=== PATIENT | female | born 2005 | race Two or more races ===

== ENCOUNTER 2024-07-03 19:48 | Emergency (ER) | payer MEDICAID, SELFPAY ==
[2024-07-03 19:49] VITALS: BMI 29.2
[2024-07-03 20:05] VITALS: BP 111/78; PULSE 87; RESP 18; TEMP 36.8; O2SAT 98
--- NOTE | 2024-07-03 20:12 | EDRME_ITS ---
Rapid Medical Screening Exam [facility] Arrival date/time: 07/03/24 19:48 19F with no significant PMH presents to ED with 3 days of N/V, gen ab cramping, and some red/bloody diarrhea. Chief Complaint: Abdominal Pain Vital signs: Vital Signs Temperature 98.2 F 07/03/24 20:05 Pulse Rate 87 07/03/24 20:05 Respiratory Rate 18 07/03/24 20:05 Blood Pressure 111/78 07/03/24 20:05 Pulse Oximetry (%) 98 07/03/24 20:05 Oxygen Delivery Method Room Air 07/03/24 20:05
[2024-07-03 20:52] LABS: Basophils % (Auto) 0 % (0-2.5); Eosinophils # (Auto) 0.2 Thou/mm3 (0.0-0.5); Eosinophils % (Auto) 2 % (0-10); Hematocrit 37.6 % (36.0-46.0); Hemoglobin 13.1 g/dL (12.0-16.0); Immature Granulocytes % (Auto) 0 % (0-0); Immature Granulocytes Auto 0.02 Thou/mm3 (0.00-0.00); Lymphocytes # (Auto) 2.7 Thou/mm3 (1.0-4.8); Lymphocytes % (Auto) 24 % (10-50); Mean Corpuscular HGB Conc 34.8 g/dl (31.0-37.0); Mean Corpuscular Hemoglobin 26.9 pg (25.0-35.0); Mean Corpuscular Volume 77 fL (80-100); Monocytes # (Auto) 1.1 Thou/mm3 (0.0-0.8); Monocytes % (Auto) 9 % (0-12); Neutrophils # (Auto) 7.4 Thou/mm3 (1.8-7.7); Neutrophils % (Auto) 65 % (37-80); Nucleated Red Blood Cell % 0 /100 WBC (0); Platelet Count 387 Thou/mm3 (140-440); Red Blood Count 4.87 Miln/mm3 (4.00-5.20); White Blood Count 11.4 Thou/mm3 (4.5-11.0)
[2024-07-03 20:58] LABS: Alanine Aminotransferase 9 U/L (10-49); Albumin/Globulin Ratio 1.7 (1.2-2.2); Alkaline Phosphatase 92 U/L (46-116); Anion Gap 5 (7-16); Aspartate Amino Transferase 13 U/L (0-34); BUN/Creatinine Ratio 14 Ratio (12-20); Bilirubin,Total 0.5 mg/dL (0.3-1.2); Blood Urea Nitrogen 10 mg/dL (9-23); Calcium 10.2 mg/dL (8.3-10.6); Calcium (Corrected) 10.2 mg/dL (8.5-10.1); Carbon Dioxide 27.8 mMol/L (20.0-31.0); Chloride 103 mMol/L (98-107); Creatinine (Component) 0.7 mg/dL (0.6-1.3); Estimated Creatinine Clearance 128.8 mL/min (>60); Glucose 88 mg/dL (74-106); Lipase 35 U/L (12-53); Osmolality,Calculated 269 (275-295); Potassium 3.8 mMol/L (3.4-5.1); Sodium 136 mMol/L (136-145); eGFR > 60 See Note
[2024-07-03 22:59] LABS: Collection Type, Urine Clean Catch
[2024-07-03 23:05] LABS: HCG Qualitative,Urine Negative
[2024-07-03 23:07] LABS: Bilirubin,Urine Negative (Negative); Blood,Urine 3+ (Negative); Clarity,Urine Clear (Clear/Hazy); Color,Urine Colorless (Lt Yel-Yel); Glucose, Urine Negative (Negative); Ketones,Urine Negative (Negative); Leukocyte Esterase,Urine Positive (Negative); Nitrite,Urine Negative (Negative); Protein,Urine Negative (Neg - Trace); RBC,Urine 10 /hpf (0-3); Specific Gravity,Urine 1.006 (1.001-1.035); Squamous Epithelial Cell,Urine 9 /hpf (0-5); Urobilinogen,Urine Negative mg/dL (0.0-1.0); WBC,Urine 8 /hpf (0-5)
[2024-07-03 23:10] LABS: Amphetamine/Methamp Scrn,U Negative (Negative); Barbiturate Screen,Urine Negative (Negative); Benzodiazepines Screen,Urine Negative (Negative); Benzoylecgonine Screen, Ur Negative (Negative); Fentanyl Screen,Urine Negative (Negative); Opiate Screen,Urine Negative (Negative); THC Screen,Urine Negative (Negative)
--- NOTE | 2024-07-04 00:15 | PC.NURSE ---
PT TOLD TRIAGE NURSE SHE WILL BE LEAVING. SHE DID NOT WANT TO WAIT TO SIGN AMA FORM AND WAS SEEING WALKING OUT OF THE ER.
== END 2024-07-04 00:39 | disposition left against medical advice (07) ==
PROVIDERS: Physician Assistant; Emergency Provider Emergency Medicine; PCP Family Medicine
DX: R10.9 Unspecified abdominal pain (principal); R11.2 Nausea with vomiting, unspecified; R19.7 Diarrhea, unspecified; Z53.21 Procedure and treatment not carried out due to patient leaving prior to being seen by health care provider
CPT/HCPCS: 36415; 80053; 80307; 81001; 81025; 83690; 85025; 99281

== ENCOUNTER 2024-11-13 22:45 | Emergency (ER) | payer OTHER, MEDICAID, SELFPAY ==
[2024-11-13 22:46] VITALS: BMI 29.2
[2024-11-13 23:16] VITALS: BP 113/70; PULSE 86; RESP 20; TEMP 36.8; O2SAT 100
--- NOTE | 2024-11-13 23:22 | PD.EDRME ---
Rapid Medical Screening Exam [facility] Arrival date/time: 11/13/24 22:45 19F at approximately 7 weeks and with no significant PMH presents to ED with vaginal bleeding after sexual intercourse today. Chief Complaint: Vaginal Bleeding Vital signs: Vital Signs Temperature 98.2 F 11/13/24 23:16 Pulse Rate 86 11/13/24 23:16 Respiratory Rate 20 11/13/24 23:16 Blood Pressure 113/70 11/13/24 23:16 Pulse Oximetry (%) 100 11/13/24 23:16 Oxygen Delivery Method Room Air 11/13/24 23:16
[2024-11-13 23:37] LABS: Basophils # (Auto) 0.1 Thou/mm3 (0.0-0.2); Basophils % (Auto) 0 % (0-2.5); Eosinophils # (Auto) 0.3 Thou/mm3 (0.0-0.5); Eosinophils % (Auto) 2 % (0-10); Hematocrit 33.2 % (36.0-46.0); Hemoglobin 11.8 g/dL (12.0-16.0); Immature Granulocytes % (Auto) 0 % (0-0); Immature Granulocytes Auto 0.05 Thou/mm3 (0.00-0.00); Lymphocytes # (Auto) 3.2 Thou/mm3 (1.0-4.8); Lymphocytes % (Auto) 19 % (10-50); Mean Corpuscular HGB Conc 35.5 g/dl (31.0-37.0); Mean Corpuscular Volume 79 fL (80-100); Monocytes % (Auto) 6 % (0-12); Neutrophils # (Auto) 11.7 Thou/mm3 (1.8-7.7); Neutrophils % (Auto) 72 % (37-80); Nucleated Red Blood Cell % 0 /100 WBC (0); Platelet Count 311 Thou/mm3 (140-440); RDW Standard Deviation 41.9 fL (36.4-46.3); Red Blood Count 4.22 Miln/mm3 (4.00-5.20); White Blood Count 16.3 Thou/mm3 (4.5-11.0)
[2024-11-13 23:58] LABS: Collection Type, Urine Clean Catch
--- NOTE | 2024-11-14 | XR_ITS ---
Examination: OB Transvaginal ultrasound of the pelvis, complete Technique: Transvaginal sonographic images pelvis performed using guevara scale imaging Exam date and time: November 14, 2024 0006 hours Indication swelling vaginal bleeding beginning last night, early by history. FINDINGS: Uterus 7.9 cm, pole is 0.5 cm corresponding to 6 weeks 1 day gestational age Cardiac motion 127 bpm Right ovary 3.1 cm arterial flow Left ovary 2.4 cm arterial flow IMPRESSION: Viable intrauterine gestation 6 weeks 1 day No subchorionic hemorrhage
[2024-11-14 00:12] LABS: Alanine Aminotransferase 9 U/L (10-49); Albumin, Serum 4.1 gm/dL (3.5-5.0); Albumin/Globulin Ratio 1.6 (1.2-2.2); Alkaline Phosphatase 71 U/L (46-116); Anion Gap 6 (7-16); Aspartate Amino Transferase 13 U/L (0-34); BUN/Creatinine Ratio 17 Ratio (12-20); Bilirubin,Total 0.3 mg/dL (0.3-1.2); Blood Urea Nitrogen 10 mg/dL (9-23); Calcium 9.4 mg/dL (8.3-10.6); Calcium (Corrected) 9.4 mg/dL (8.5-10.1); Carbon Dioxide 25.6 mMol/L (20.0-31.0); Chloride 107 mMol/L (98-107); Creatinine (Component) 0.6 mg/dL (0.6-1.3); Estimated Creatinine Clearance 150.3 mL/min (>60); Globulin 2.6 gm/dL (2.3-3.5); Glucose 92 mg/dL (74-106); Osmolality,Calculated 276 (275-295); Potassium 3.4 mMol/L (3.4-5.1); Sodium 139 mMol/L (136-145); Total Protein 6.7 gm/dL (5.7-8.2); eGFR > 60 See Note
[2024-11-14 00:22] LABS: Bacteria,Urine Rare; Bilirubin,Urine Negative (Negative); Blood,Urine 3+ (Negative); Clarity,Urine Clear (Clear/Hazy); Color,Urine Lt-Yellow (Lt Yel-Yel); Glucose, Urine Negative (Negative); Ketones,Urine Negative (Negative); Leukocyte Esterase,Urine Negative (Negative); Nitrite,Urine Negative (Negative); Protein,Urine Negative (Neg - Trace); RBC,Urine 70 /hpf (0-3); Specific Gravity,Urine 1.028 (1.001-1.035); Squamous Epithelial Cell,Urine 1 /hpf (0-5); Urobilinogen,Urine Negative mg/dL (0.0-1.0); WBC,Urine 2 /hpf (0-5)
[2024-11-14 00:31] LABS: Beta HCG,Quantitative 23483 mIU/mL (<5.0)
--- NOTE | 2024-11-14 01:59 | PRELIM_ITS ---
Obstetric ultrasound (transabdominal and transvaginal) with Doppler and wave Doppler spectral analysis. November 14, 2024 0002 hours Clinical history: Bleeding after intercourse; 7 weeks Technique: Real-time ultrasound was performed using Duplex scanning including arterial inflow, venous outflow, color and spectral Doppler analysis of both ovaries. Comparison: None. Findings: There is an intrauterine gestation with a single live fetus of mean gestational age 6 weeks and 2 days (CRL= 0.5 cm). cardiac activity is present at heart rate of 127 beats per minute. The aortic sac is visualized. The uterus measures 7.9 x 4.8 x 5.5 cm. The right ovary measures 3.1 x 2.4 x 2.7 cm, follicles noted. The left ovary measures 2.2 x 1.0 x 2.4 cm, follicles noted. Normal blood flow in the bilateral ovaries with normal wave Doppler spectral analysis. There is no free fluid in the pelvis. Impression: Intrauterine gestation with a single live fetus of mean gestational age 6 weeks and 2 days. No evidence of ovarian torsion. Report Electronically Signed By: Nam Hernandes 11/14/2024 1:58:17 AM [EST]
[2024-11-14 03:37] VITALS: BP 129/83; PULSE 92; RESP 16; O2SAT 100
--- NOTE | 2024-11-14 03:41 | PD.EDVAGBL ---
ED OB Contraction Preg RMI/HPI General Chief complaint: Vaginal Bleeding Stated complaint: 7 WEEKS , VAGINAL BLEEDING Arrival date/time: 11/13/24 22:45 RME / HPI RME / HPI Narrative: 11/13/24 22:45 19F at approximately 7 weeks and with no significant PMH presents to ED with vaginal bleeding after sexual intercourse today. ' LMP 10/03/24. 19-year-old female G1 para 0 pending PROCTOLOGIST appointment on December presents to the emergency department with vaginal bleeding x 1 day. Presents with complaints of vaginal bleeding for 12 hours. Patient states that she had spotting after intercourse with her significant other today. Otherwise no abdominal cramping. No back pain. No burning when she urinates. No history of spontaneous or elective abortions or ectopics. The patient denies shortness of breath, chest pain, fever, chills, diarrhea, constipation, dysuria, back pain, or abdominal pain. No prior history of pelvic inflammatory disease, pelvic surgeries, use of fertility agents, and no current intrauterine device. 11/14/24 5:15 am [facility] - Idalia Matta Related Data Previous Rx's ?Medication ?Instructions ?Recorded amoxicillin 875 mg-potassium 1 tab PO Q12H #20 tabs 11/23/22 clavulanate 125 mg tablet ibuprofen 600 mg tablet 600 mg PO Q8H PRN fever or pain 11/23/22 #30 tabs ibuprofen 600 mg tablet 600 mg PO TID PRN pain #30 tabs 09/15/23 ibuprofen 800 mg tablet 800 mg PO TID PRN pain #30 tabs 12/14/23 Allergies Allergy/AdvReac Type Severity Reaction Status Date / Time No Known Allergies Allergy Verified 07/03/24 19:51 Review of Systems Review of Systems Systems Reviewed: All systems reviewed, normal except as documented Past Medical History Past Medical History CARDIAC: Negative Congestive Heart Failure RESPIRATORY: Negative Chronic Obstructive Pulmonary Disease (COPD) GENITOURINARY: Negative Renal Disease ENDOCRINE: Negative Diabetes Mellitus Type 1 or Diabetes Mellitus Type 2 Social History SMOKING STATUS: Never smoker ED Exam Narrative Physical exam: General: Non-toxic, well appearing, in no acute distress, and appears state age and well developed and well nourished. Vital signs: Normal. Head: Normocephalic and atraumatic. Eyes: Aproptotic, extraocular movements intact, and pupils equally round and reactive to light. Nose: Nares without evidence of rhinorrhea. Neck: Supple without menigismus without lympadenopathy. Heart: Regular rate and rhythm without murmur, gallops, or rubs. Lungs: Clear to auscultation without wheezing, rales, or rhonchi. Abdomen: Soft, nontender, no masses, and not distended. Skin: no rashes, ecchymosis, or lesions. 11/14/24 5:15 am Idalia Crystal Course Quality Measures none Orders Category Date Time Status US OB transvaginal Stat Exams 11/14/24 00:00 Taken ABO/RH Type Stat Lab 11/13/24 23:28 Completed Beta HCG,Quantitative Stat Lab 11/13/24 23:28 Completed CBC Stat Lab 11/13/24 23:28 Completed CMP [Comprehensive Metabolic Panel] Stat Lab 11/13/24 23:28 Completed UA [Urinalysis] Stat Lab 11/13/24 23:48 Completed Urine Culture Stat Lab 11/13/24 23:48 Received Reevaluation(s) Reevaluation #1: Patient in no acute distress. Repeat abdominal exam nontender nondistended. Vital Signs Vital signs: Vital Signs Temperature 98.2 F 11/13/24 23:16 Pulse Rate 86 11/13/24 23:16 Respiratory Rate 20 11/13/24 23:16 Blood Pressure 113/70 11/13/24 23:16 Pulse Oximetry (%) 100 11/13/24 23:16 Oxygen Delivery Method Room Air 11/13/24 23:16 Vaginal Bleeding MDM Narrative MDM Narrative: No evidence of significant hemorrhage, ectopic , or other life threatening pathology. Doubt heterotopic . Blood type Rh+. Viable intrauterine confirmed by transvaginal ultrasound performed by radiology. Plan to follow up in clinic within the week as scheduled with her first OB appointment in the next 1 week. Vital signs remained stable throughout the emergency department course. The patient was given strict return precautions and was comfortable with the plan. Patient data External records reviewed:: [facility] previous records Clinical information provided by:: patient Social determinants that could affect healthcare access:: none Patient has the following chronic illnesses:: None How is presenting disease/condition affected by chronic disease/condition?: exacerbated by Evaluation data The following diagnostics were reviewed and interpreted by me:: lab results and radiology exam(s) Lab and/or radiology exams considered but not ordered:: Obstetric ultrasound (transabdominal and transvaginal) with Doppler and wave Doppler spectral analysis. November 14, 2024 0002 hours Clinical history: Bleeding after intercourse; 7 weeks Technique: Real-time ultrasound was performed using Duplex scanning including arterial inflow, venous outflow, color and spectral Doppler analysis of both ovaries. Comparison: None. Findings: There is an intrauterine gestation with a single live fetus of mean gestational age 6 weeks and 2 days (CRL= 0.5 cm). cardiac activity is present at heart rate of 127 beats per minute. The aortic sac is visualized. The uterus measures 7.9 x 4.8 x 5.5 cm. The right ovary measures 3.1 x 2.4 x 2.7 cm, follicles noted. The left ovary measures 2.2 x 1.0 x 2.4 cm, follicles noted. Normal blood flow in the bilateral ovaries with normal wave Doppler spectral analysis. There is no free fluid in the pelvis. Impression: Intrauterine gestation with a single live fetus of mean gestational age 6 weeks and 2 days. No evidence of ovarian torsion. Report Electronically Signed By: Nam Hernandes 11/14/2024 1:58:17 AM [EST] Dictated By: Signed By: Interpretation Summary: Patient no evidence of ectopic . No UTI. hCG is noted. Medications / Prescriptions Medications or Prescriptions considered but not ordered:: none Medication administrations:: As above Consultations Consultation(s) initiated? (list below): No Consultation #1 (Physician, Specialty, Details): None Diagnosis Vaginal Bleeding Differential Diagnosis: missed , threatened , dysfunctional uterine bleeding, ectopic without intrauterine , vaginal bleeding and other Most likely diagnosis given after review of the tests above:: see clinical impression below Admission Indicated Admission indicated?: not indicated Explain why admission is indicated or not indicated:: Repeat abdominal exam nontender nondistended. Not actively bleeding per the patient Admission Request Was there a request for admission?: No Disposition Plan Disposition Plan: Discharge Discharge Attestation Discharge Attestation: The patient and all family members were given an opportunity to ask questions and understood the discharge instructions. Discharge instructions specifically effects, indications for sooner follow up or return to the emergency department, and the expected course of current diagnosis. Patient condition: Stable Discharge Plan Plan Patient Disposition: HOME (Self Care) Patient condition on transfer: Stable Prescriptions/Referrals Prescriptions/Med Rec: No Action amoxicillin-pot clavulanate 875-125 mg tablet 1 tab PO Q12H Qty: 20 0RF ibuprofen 600 mg tablet 600 mg PO Q8H PRN (Reason: fever or pain) Qty: 30 0RF ibuprofen 600 mg tablet 600 mg PO TID PRN (Reason: pain) Qty: 30 0RF ibuprofen 800 mg tablet 800 mg PO TID PRN (Reason: pain) Qty: 30 0RF Referrals: Kb Matta MD [Primary Care Provider] - In 1 week Problem List Clinical Impression: Vaginal bleeding, Intrauterine Patient/Caregiver Discharge Instructions Education Materials: ED Possible Miscarriage ... Additional Instructions: Today your ultrasound shows that you are at 6 weeks 2 days and the baby is doing fine. However if you should start bleeding again this could be an indication for miscarriage. Please avoid any intravaginal intercourse, baths, or tampons for the next 1 week. Please follow-up with your PROCTOLOGIST as scheduled for December 17. Return to the emergency department for any worsening symptoms, you have any cramping, increasing bleeding, or you have any other concerns. Print Language: [place] Citizen Stand Alone Forms: Arline Award Info., Patient Portal Info Letter
== END 2024-11-14 03:58 | disposition home or self-care (01) ==
PROVIDERS: Physician Assistant; Emergency Provider Emergency Medicine; PCP Family Medicine
DX: O20.9 Hemorrhage in early pregnancy, unspecified (principal); Z3A.01 Less than 8 weeks gestation of pregnancy
CPT/HCPCS: 36415; 76817; 80053; 81001; 84702; 85025; 86900; 86901; 87086; 99284

== ENCOUNTER 2025-05-07 12:37 | Observation (INO) | payer BC, MEDICAID, SELFPAY ==
[2025-05-07] VITALS (13 sets, daily range): BP systolic 96–99; BP diastolic 52–55; PULSE 85–105; RESP 16–100; TEMP 36.9; O2SAT 93–100; BMI 30.1
--- NOTE | 2025-05-07 13:03 | XR_ITS ---
Examination: Complete OB ultrasound greater than 14 weeks Date and time of exam: May 07, 2025 1310 hours INDICATIONS: Pelvic pain, pressure today Findings: Viable intrauterine single fetus with single amniotic sac presentation Vertex spine maternal right Cardiac motion 150 BPM Placenta right lateral grade 2 Umbilical cord insertion seen Amniotic fluid index 11.9 cm spine is visualized Ovaries obscured by bowel gas. Composite estimated gestational age based on BPD, head circumference, abdominal circumference, femur length is 32 weeks 0 days Estimated weight 1716 g. Survey of intracranial anatomy, spinal anatomy, abdominal anatomy, four-chamber heart performed with no abnormalities identified. Impression: Viable intrauterine gestation vertex presentation.
--- NOTE | 2025-05-07 13:03 | XR_ITS ---
Examination: OB Transvaginal ultrasound of the pelvis, Limited Technique: Transvaginal sonographic images pelvis performed using guevara scale imaging Exam date and time: May 07, 2025 1321 hours INDICATIONS: Onset of pelvic pain and pressure today, unknown cervical length. FINDINGS: Cervix 2.8 cm closed IMPRESSION: Cervix 2.8 cm closed.
[2025-05-07 13:19] LABS: Collection Type, Urine Clean Catch
[2025-05-07 13:58] LABS: Bacteria,Urine Rare; Bilirubin,Urine Negative (Negative); Blood,Urine Negative (Negative); Clarity,Urine Clear (Clear/Hazy); Color,Urine Lt-Yellow (Lt Yel-Yel); Glucose, Urine Negative (Negative); Ketones,Urine Negative (Negative); Leukocyte Esterase,Urine Positive (Negative); Nitrite,Urine Negative (Negative); PH,Urine 6.0 (5.0-7.0); Protein,Urine Negative (Neg - Trace); RBC,Urine 2 /hpf (0-3); Specific Gravity,Urine 1.005 (1.001-1.035); Squamous Epithelial Cell,Urine 2 /hpf (0-5); Urobilinogen,Urine Negative mg/dL (0.0-1.0); WBC,Urine 2 /hpf (0-5)
[2025-05-07 14:27] LABS: FFN Specimen Descripton Clr Colrless Aqueous; Fetal Fibronectin Positive (Negative)
[2025-05-07] MEDS: BETAMET ACET/BETAMET NA PH (Celestone) 6 MG/ML VIAL 12 MG IM (15:04)
[2025-05-07] MEDS: TERBUTALINE SULF INJ 1 MG/ML VIAL 0.25 MG SC (15:05)
[2025-05-07] MEDS: RINGERS LACTATED 1000 ML 1,000 ML 999 ML IV (15:24)
== END 2025-05-07 16:35 | disposition home or self-care (01) ==
PROVIDERS: Admitting Provider Specialist; Visit Provider Specialist
DX: O26.893 Other specified pregnancy related conditions, third trimester (principal); Z3A.30 30 weeks gestation of pregnancy; R10.2 Pelvic and perineal pain
CPT/HCPCS: 59025; 59899; 76805; 76817; 81001; 82731; 96372; J0702; J3105; J7120

== ENCOUNTER 2025-05-08 14:57 | Outpatient (CLI) | payer BC, MEDICAID, SELFPAY ==
[2025-05-08 15:06] VITALS: BP 107/66; PULSE 96
[2025-05-08 15:15] VITALS: BP 107/66; PULSE 96; RESP 18; RESP 99; TEMP 36.7; BMI 32.2
[2025-05-08] MEDS: BETAMET ACET/BETAMET NA PH (Celestone) 6 MG/ML VIAL 12 MG IM (15:40)
== END 2025-05-08 15:45 | disposition home or self-care (01) ==
LOC: S4S1 14:59 → S4SX 15:00
PROVIDERS: Referring Provider Surgery Surgical Oncology; Visit Provider Specialist
DX: Z34.03 Encounter for supervision of normal first pregnancy, third trimester (principal); Z36.9 Encounter for antenatal screening, unspecified; Z3A.31 31 weeks gestation of pregnancy
CPT/HCPCS: 59025; 96372; J0702

== ENCOUNTER 2025-05-12 14:15 | Observation (INO) | payer BC, MEDICAID, SELFPAY ==
[2025-05-12 14:15] VITALS: BP 101/56; PULSE 111; RESP 16; RESP 97; TEMP 36.8
[2025-05-12 14:26] VITALS: BMI 32.1
[2025-05-12 14:31] VITALS: BP 101/56; PULSE 111
[2025-05-12 15:30] VITALS: BP 104/60; PULSE 90
[2025-05-12 15:34] VITALS: PULSE 90
[2025-05-12] MEDS: TERBUTALINE SULF INJ 1 MG/ML VIAL 0.25 MG SC (15:34)
== END 2025-05-12 16:10 | disposition home or self-care (01) ==
PROVIDERS: Admitting Provider Specialist; Visit Provider Specialist
DX: O36.8190 Decreased fetal movements, unspecified trimester, not applicable or unspecified (principal); Z3A.00 Weeks of gestation of pregnancy not specified
CPT/HCPCS: 59899; J3105

== ENCOUNTER 2025-06-03 08:48 | Observation (INO) | payer BC, MEDICAID, SELFPAY ==
[2025-06-03] VITALS (18 sets, daily range): BP systolic 104; BP diastolic 63; PULSE 71–124; RESP 18–99; TEMP 36.8; O2SAT 91–100; BMI 32.7
[2025-06-03] MEDS: TERBUTALINE SULF INJ 1 MG/ML VIAL 0.25 MG SC ×2 (09:24→09:54)
== END 2025-06-03 10:27 | disposition home or self-care (01) ==
PROVIDERS: Admitting Provider Specialist; Visit Provider Specialist
DX: O36.8130 Decreased fetal movements, third trimester, not applicable or unspecified (principal); O26.893 Other specified pregnancy related conditions, third trimester; M54.9 Dorsalgia, unspecified; Z3A.34 34 weeks gestation of pregnancy
CPT/HCPCS: 59025; 59899; J3105

== ENCOUNTER 2025-06-29 13:10 | Inpatient (IN) | payer BC, MEDICAID, SELFPAY ==
[2025-06-29] VITALS (12 sets, daily range): BP systolic 112–123; BP diastolic 71–78; PULSE 70–103; RESP 18–98; TEMP 36.5–36.7; O2SAT 95–99; BMI 33.1
--- NOTE | 2025-06-29 15:28 | ESHP_ITS ---
RE: SUKUMAR JOY : 2005 DATE OF ADMISSION: 06/29/2025 HISTORY OF PRESENT ILLNESS: This is a 20 year old 1 para 0 with due date of 07/10 with intrauterine at 38 weeks and 3 days who presents to labor and delivery complaining of contractions. Intitially she was fingertip then after walking for 1 hour she progressed to 3 cm per RN exam and is being admitted for early labor. No leaking or bleeding. Normal movement. See PNV Record for PMHx. PE: 120/82 HR 83 RR 18 T 98.4 HEENT : oropharynx and sclera clear Lungs : CTA B/L Heart:? RRR Abdomen: Gravid term size consistent with 7.5 lbs. ?? Pelvic: see RN notes Ext:? Nontender Skin: No gross rashes or lesions Neuro: No focal deficit Psych: Alert and oriented IUP 38w3d by best dates. Labor Anticipate Informed consent obtained. Aware of the risk complications, alternatives and benefits of OVD and C/S Delivery and agrees with these modes of deliver if indicated. DT: 15:17:31 TT: 15:27:00 Ref: [id number] - TID: [id number] [facility]
--- NOTE | 2025-06-29 16:14 | PD.LDPN ---
Documentation for date of: 06/29/25 OB Labor Progress Note Pain Control Comments: None Pelvic Exam Dilation (cm): 3 Effacement (%): 60 station: -3 Amniotic membrane status: Intact Comments: Per RN exam Contractions Monitor mode: External Contraction frequency: 5-10 Contraction intensity: Mild Status status: Category l Assessment and Plan Comments: Anticipate History of Present Illness HPI Labor pains
[2025-06-29 18:02] LABS: Basophils # (Auto) 0.0 Thou/mm3 (0.0-0.2); Basophils % (Auto) 0 % (0-2.5); Eosinophils # (Auto) 0.1 Thou/mm3 (0.0-0.5); Eosinophils % (Auto) 1 % (0-10); Hematocrit 31.9 % (36.0-46.0); Hemoglobin 11.3 g/dL (12.0-16.0); Immature Granulocytes Auto 0.08 Thou/mm3 (0.00-0.00); Lymphocytes # (Auto) 2.1 Thou/mm3 (1.0-4.8); Lymphocytes % (Auto) 15 % (10-50); Mean Corpuscular HGB Conc 35.4 g/dl (31.0-37.0); Mean Corpuscular Hemoglobin 26.3 pg (25.0-35.0); Mean Corpuscular Volume 74 fL (80-100); Monocytes # (Auto) 1.3 Thou/mm3 (0.0-0.8); Monocytes % (Auto) 9 % (0-12); Neutrophils # (Auto) 10.7 Thou/mm3 (1.8-7.7); Neutrophils % (Auto) 75 % (37-80); Nucleated Red Blood Cell # 0.00 Thou/mm3 (0.00-0.00); Nucleated Red Blood Cell % 0 /100 WBC (0); Platelet Count 261 Thou/mm3 (140-440); RDW Standard Deviation 44.7 fL (36.4-46.3); Red Blood Count 4.29 Miln/mm3 (4.00-5.20); White Blood Count 14.2 Thou/mm3 (3.6-11.0)
[2025-06-29 18:47] LABS: Syphilis Nonreactive (Nonreactive)
[2025-06-30] VITALS (97 sets, daily range): BP systolic 91–123; BP diastolic 53–72; PULSE 64–113; RESP 15–20; TEMP 36.4–36.9; O2SAT 92–100
--- NOTE | 2025-06-30 07:01 | PD.LDPN ---
Documentation for date of: 06/30/25 OB Labor Progress Note Pain Control Comments: Epidural Pelvic Exam Dilation (cm): 6 Effacement (%): 90 station: -2 Amniotic membrane status: Intact Contractions Monitor mode: External Contraction frequency: 2-5 Contraction pattern: Tetanic Contraction intensity: Moderate Status status: Category l Assessment and Plan Comments: Anticipate . History of Present Illness HPI Labor pains
[2025-06-30] MEDS: fentaNYL CIT INJ 50 mCg/ML AMP 2ML 100 MCG IVP ×2 (09:37→11:14)
[2025-06-30] MEDS: MINERAL OIL 30 ML UDC TOP (12:05)
[2025-06-30] MEDS: OXYTOCIN in NS 20 units 20 UNIT/1,000 ML BAG 125 UNIT IV (12:07)
[2025-06-30] MEDS: LIDOCAINE HCL 1% 20 ML VIAL INFL (12:09)
[2025-06-30] MEDS: BENZO/LANO/ALOE (Dermoplast) 60 GM CAN 1 SPRAY TOP (12:09)
--- NOTE | 2025-06-30 12:34 | ESDS_ITS ---
DS: Providers Provider Date of admission: 06/29/25 15:58 Primary care physician: Physician No Primary/Family Admitting Provider: Channing Gray MD Attending Provider on Admission: Channing Gray MD Attending Provider on DC: Channing Gray MD Discharging Provider: Channing Gray MD DS: Diagnosis Discharge Diagnosis (1) (normal spontaneous vaginal delivery): Status: Acute Problem List Completed Was Problem List Reviewed/Reconciled?: Yes Summary/Hosp Course Brief History: Labor pains Peripartum Data Delivery Method: Normal Vaginal Delivery Laceration Description: see Delivery Summary Procedures: Repair 2nd degree perineal and bilateral labial lacerations EBL 200 Nuchal cord. Time Spent with Patient Time attestation: Total time spent providing and/or coordinating discharge services: Exam Vital Signs Temp Pulse Resp BP Pulse Ox O2 Del Method 98.1 F 81 20 112/60 100 Room Air 06/30/25 10:00 06/30/25 12:29 06/30/25 10:00 06/30/25 12:29 06/30/25 12:32 06/30/25 10:00 Discharge Plan Plan Patient Disposition: HOME (Self Care) Patient condition on transfer: Stable Prescriptions/Referrals Prescriptions/Med Rec: New ibuprofen 600 mg tablet 600 mg PO Q6H PRN (Reason: pain) Qty: 30 0RF Continued PNV no.95-ferrous fumarate-FA [] 28 mg iron- 800 mcg tablet 1 tab PO DAILY Patient Comments: Take 1 tablet by mouth once a day ferrous sulfate 325 mg (65 mg iron) tablet 325 mg PO QDAY Patient Comments: TAKE 1 TABLET BY MOUTH EVERY DAY Referrals: No Primary/Family,Physician [Primary Care Provider] Patient/Caregiver Discharge Instructions Discharge Activity: activity as tolerated Other Discharge Activity Instructions:: Follow up office 6 weeks. Print Language: [place] Stand Alone Forms: Arline Award Info., Patient Portal Info Letter Planned Discharge Date 06/30/25
[2025-06-30] MEDS: IBUPROFEN TAB 400 MG TABLET 800 MG PO (14:12)
[2025-06-30 17:52] LABS: Basophils # (Auto) 0.0 Thou/mm3 (0.0-0.2); Basophils % (Auto) 0 % (0-2.5); Eosinophils # (Auto) 0.0 Thou/mm3 (0.0-0.5); Eosinophils % (Auto) 0 % (0-10); Hematocrit 28.8 % (36.0-46.0); Hemoglobin 10.1 g/dL (12.0-16.0); Immature Granulocytes Auto 0.13 Thou/mm3 (0.00-0.00); Lymphocytes # (Auto) 1.7 Thou/mm3 (1.0-4.8); Lymphocytes % (Auto) 7 % (10-50); Mean Corpuscular HGB Conc 35.1 g/dl (31.0-37.0); Mean Corpuscular Hemoglobin 25.9 pg (25.0-35.0); Mean Corpuscular Volume 74 fL (80-100); Monocytes # (Auto) 1.6 Thou/mm3 (0.0-0.8); Monocytes % (Auto) 7 % (0-12); Neutrophils # (Auto) 19.5 Thou/mm3 (1.8-7.7); Neutrophils % (Auto) 85 % (37-80); Nucleated Red Blood Cell # 0.00 Thou/mm3 (0.00-0.00); Nucleated Red Blood Cell % 0 /100 WBC (0); Platelet Count 247 Thou/mm3 (140-440); RDW Standard Deviation 44.9 fL (36.4-46.3); Red Blood Count 3.90 Miln/mm3 (4.00-5.20); White Blood Count 22.9 Thou/mm3 (3.6-11.0)
--- NOTE | 2025-06-30 19:06 | PD.LDDELS ---
Data (Ennis) Data Hx Section: No : 1 Term: 0 : 0 Livin Abortions: Spontaneous & Theraputic: 0 Delivery Data (Ennis) Labor Data Initiation of labor: Spontaneous Induction/Augmentation Agent: Artificial ROM ROM date: 06/30/25 ROM time: 08:50 Amniotic membrane rupture type: Artificial Amniotic fluid description: Light Meconium Delivery Data EDC: 07/10/25 EDC calculated by:: LMP/early US confirmation Onset of labor date: 06/30/25 Onset of labor time: 07:00 Complete dilation date: 06/30/25 Complete dilation time: 11:50 Raymond delivery date: 06/30/25 delivery time: 12:06 Gestational age (weeks): 38 Gestational age (days): 4 Placenta delivery date: 06/30/25 Placenta delivery time: 12:16 Stage 1 total time: Labor - Stage 1 Duration 4 hours and 50 minutes Delivered by: Channing Gray Delivery nurse: REGGIE Yi nurse: REGGIE Otoole & REGGIE Valdes Insurance Specialist at delivery: No Support person(s) at delivery: FOB & Mother Other staff at delivery: Jason Olmstead mergers and acquisitions attorney Method Delivery method: Normal Vaginal Delivery Presentation: Vertex position: OA Anesthesia Type Anesthesia Type: Local Placenta Placenta delivery description: Spontaneous Cord blood sent to lab: Yes cord blood collection: Cord Blood Type Episiotomy Episiotomy description: None Lacerations #1: Perineal: 2nd degree Labial: Bilateral 2nd degree Perineal repair Sutures used for repair: 3.0 Chromic EBL Estimated blood loss (ml): 200 Umbilical Cord cord description: Nuchal Cord Complications Complications: None Raymond Data ([place]nis) Raymond Data order: 1 's gender: Male Identification band number: [id number] weight (gms): 6 lb 9.822 oz Weight (pounds): 6 lbs and 9.8 ozs length: 21 in 1 minute: 8 5 minutes: 9
[2025-07-01 00:07] VITALS: BP 102/67; PULSE 80; RESP 16; TEMP 36.8; O2SAT 98
[2025-07-01 04:18] VITALS: BP 114/71; PULSE 84; RESP 16; TEMP 36.7; O2SAT 98
[2025-07-01 08:00] VITALS: BP 110/63; PULSE 83; RESP 16; TEMP 36.7; O2SAT 98
--- NOTE | 2025-07-01 08:12 | ESPR_ITS ---
RE: SUKUMAR JOY : 2005 DATE OF SERVICE: 07/01/2025 SUBJECTIVE: day #1. Patient denies any problem or complaints. She is voiding and ambulating and tolerating her diet. She is passing flatus. OBJECTIVE: Vital Signs: Blood pressure is 114/71, heart rate 84, respirations 16, temperature is 98.0, pulse ox is 98 % on room air. Lungs: Clear to auscultation bilaterally. Heart: Regular rate and rhythm. Abdomen: Nontender, fundus is firm. Extremities: Nontender. LABORATORY DATA: Hemoglobin pre-delivery is 11.3, post-delivery 10.1. ASSESSMENT: day #1 status post spontaneous vaginal delivery. PLAN: Discharge home when baby is cleared, discharge instructions given, follow up in the office in 6 weeks. DT: 08:02:37 TT: 08:10:00 Ref: [id number] - TID: [id number]
[2025-07-01 11:42] VITALS: BP 104/68; PULSE 81; RESP 18; TEMP 36.7; O2SAT 97
--- NOTE | 2025-07-01 12:18 | PC.SS ---
BASIC SCIENCES PROFESSOR conducted bedside contact with the patient to address nursing referral indicating patient possessed history of depression.? BASIC SCIENCES PROFESSOR introduced self and role.? At bedside with patient was RINA, Sergio Rubio.? Patient gave permission for FOB to be present during discussion.? Patient confirmed past history of depression.? Per patient, level of depression has not impaired daily functioning.? Patient is not prescribed medication to address depression.? Patient not currently prescribed medication for depression.? Patient reports no presence of depressive symptoms at present time. ?BASIC SCIENCES PROFESSOR reviewed with patient symptoms of post-.? FOB confirmed that patient?s level of depression is not impacting daily functioning in an adverse manner.? Infant, Lui; is the patient?s first child.? delivered naturally.? Patient interacting appropriate with infant.? OB services provided by Dr. Gray.? Patient reports compliance with OB appointments.? Patient plans on breast feeding the infant.? Patient is receiving WIC.? Patient is not aligned with SNAP or TANF.? Patient denies history of alcohol/drug use.? Patient denies episodes of domestic violence.? Patient has access to appropriate supplies and equipment.? FOB will provide transportation upon discharge.? Patient describes possessing support system consisting of spouse and extended family.? BASIC SCIENCES PROFESSOR provided community resources to include [employer] and [employer].? No further intervention required at this time, licensed social worker will be available to address any further concerns.? BASIC SCIENCES PROFESSOR updated bedside nurse.?
== END 2025-07-01 15:20 | disposition home or self-care (01) | DRG 807 ==
LOC: S4SX 06-30 12:30 → S4NX 06-30 14:08
PROVIDERS: Admitting Provider Specialist; Visit Provider Specialist
DX: O69.81X0 Labor and delivery complicated by cord around neck, without compression, not applicable or unspecified (principal); O77.0 Labor and delivery complicated by meconium in amniotic fluid; O70.1 Second degree perineal laceration during delivery; Z37.0 Single live birth; Z3A.38 38 weeks gestation of pregnancy
CPT/HCPCS: 36415; 59025; 59409; 85025; 86780; 86850; 86900; 86901; 94762; J2590; J3010; J3490; A9270